=== PATIENT | male | born 1960 | race African-American/Black ===

== ENCOUNTER 2019-11-06 07:54 | Outpatient (CLI) | payer MEDICARE ==
--- NOTE | 2019-11-06 08:52 | RAD ---
Exam:2 views left knee HISTORY: Pain COMPARISON: 04/02/2017 FINDINGS: Stable moderate tricompartmental degenerative change. No fracture or malalignment. No joint effusion. IMPRESSION: Stable tricompartmental degenerative change
--- NOTE | 2019-11-06 11:07 | RAD ---
RIGHT KNEE 2 VIEWS: Date: 11/06/2019 HISTORY: Right knee pain. FINDINGS: There is moderate medial compartment joint space narrowing. There are small patellofemoral spurs. Vas cular calcifications are seen. Ossification along the distal patellar tendon is noted. IMPRESSION: Moderate arthritic changes of the knee, mainly related to medial compartment joint space narrowing. POS: [facility]
--- NOTE | 2019-11-06 11:48 | MRI ---
LUMBAR SPINE MRI WITHOUT IV CONTRAST: Date: 11/06/2019 HISTORY: Radiculopathy of lumbar region. Low back pain radiating to both legs. COMPARISON: 10/13/2016. FINDINGS: Generalized disc desiccation changes, and ligament and facet hypertrophic changes, with fluid within the facet joints, particularly at L2-L3 and L3-L4. Conus medullaris region appears unremarkable. Ther e is minimal fatty infiltration of the phylum terminale. Transitional changes at the lumbosacral leve l. T12-L1: No significant stenosis. L1-L2: No significant stenosis. L2-L3: More marked ligament and facet hypertrophic changes with moderate bilateral facet fluid. The previously noted right-sided synovial cyst at this level is no longer present. Mild bilateral recess stenosis and foraminal stenosis. L3-L4: Facet arthrosis with fluid within the facet joints, with mild lateral recess and foraminal st enosis. L4-L5: Mild disc bulging without significant associated stenosis. L5-S1: Unremarkable. IMPRESSION: Multilevel disc desiccation changes and ligament and facet hypertrophic changes with facet fluid, par ticularly at L2-L3 and L3-L4, with associated stenosis changes at L2-L3. The previously noted right-s ided synovial cyst is no longer evident. Other findings as above. POS: [facility]
== END 2019-11-06 07:55 | disposition home or self-care (01) ==
LOC: BICMRI 07:54
PROVIDERS: ATTEND Anesthesiology Pain Medicine
DX: M51.16 Intervertebral disc disorders with radiculopathy, lumbar region (principal); G89.4 Chronic pain syndrome; M54.5 Low back pain; M62.830 Muscle spasm of back; M25.561 Pain in right knee; M25.562 Pain in left knee; M17.0 Bilateral primary osteoarthritis of knee
CPT/HCPCS: 72148

== ENCOUNTER 2020-02-06 08:01 | Outpatient (CLI) | payer MEDICARE ==
--- NOTE | 2020-02-06 08:39 | MMO ---
Bilateral MAMMO Bilat Diag [facility]. CLINICAL HISTORY: Patient is 59 years old and is seen for diagnostic exam and lump or thickening in the sub-areolar region of the left breast. The patient has the following family history of breast cancer: mother, malignant (generic). The patient has no personal history of cancer. VIEWS: The views performed were: bilateral craniocaudal with tomosynthesis and bilateral mediolateral oblique with tomosynthesis. FILMS COMPARED: The present examination has been compared to a prior imaging study performed at [facility] on 02/06/2020. This study has been interpreted with the assistance of computer-aided detection. MAMMOGRAM FINDINGS: There is fibroglandular tissue in the subaerolar regions bilaterally, consistent with gynecomastia. There are no suspicious masses, suspicious calcifications, or new areas of architectural distortion. IMPRESSION: THERE IS NO MAMMOGRAPHIC EVIDENCE OF MALIGNANCY. THE RESULTS OF THIS EXAM WERE SENT TO THE PATIENT. ACR BI-RADS Category 2 - Benign finding MAMMOGRAPHY NOTE: 1. A negative mammogram report should not delay a biopsy if a dominant of clinically suspicious mass is present. 2. Approximately 10% to 15% of breast cancers are not detected by mammography. 3. Adenosis and dense breasts may obscure an underlying neoplasm. Reported by: RUDY SHEARER MD Electonically Signed: [id number]
== END 2020-02-06 08:02 | disposition home or self-care (01) ==
LOC: BICMAMMO 08:01
PROVIDERS: ATTEND Family Medicine
DX: N63.20 Unspecified lump in the left breast, unspecified quadrant (principal)
CPT/HCPCS: 77066; G0279; 77063; 77067

== ENCOUNTER 2022-07-11 01:44 | Inpatient (IN) | payer OTHER ==
[~2022-07-11 01:44] MED LIST: Iopamidol 370 76% 100 ML VIAL ONE
[2022-07-11 03:58] VITALS: BMI 32.3
[2022-07-11] MEDS ORDERED: Ondansetron PF 4 MG/2 ML Vial IVP PRN ×2 (03:58→16:44)
[2022-07-11] MEDS ORDERED: Acetaminophen 325 MG TAB PO PRN ×2 (03:58→16:44)
[2022-07-11] MEDS ORDERED: Senokot S 8.6-50 MG TAB PO PRN (03:58)
[2022-07-11] MEDS ORDERED: Ondansetron ODT 4 MG TAB PO PRN (03:58)
[2022-07-11 05:45] LABS: ALT (SGPT) 31 U/L (8-55); AST (SGOT) 77 U/L (5-34); Albumin 3.7 g/dL (3.4-4.8); Alkaline Phosphatase 100 U/L (40-110); Anion Gap 14 mmol/L (10-20); BUN (Urea Nitrogen) 17 mg/dL (8.4-25.7); Bilirubin, Total 0.6 mg/dL (0.2-1.2); Calc. Creatinine Clearance 74 mL/min (70-130); Calcium 8.9 mg/dL (7.8-10.44); Carbon Dioxide 27 mmol/L (23-31); Chloride 99 mmol/L (98-107); Estimated GFR 54; Globulin 3.6 g/dL (2.4-3.5); Glucose 185 mg/dL (80-115); Protein, Total 7.3 g/dL (5.8-8.1); Sodium 136 mmol/L (136-145)
[2022-07-11 06:02] LABS: Troponin I 3.449 ng/mL (< 0.028)
[2022-07-11] MEDS: Nitroglycerin 0.4 MG TAB (25 Tab Bottle) ONE ×2 (07:02→07:19)
[2022-07-11] MEDS ORDERED: Nitroglycerin 50 MG/250 ML BOT 250 ML IVPB SCH (07:30)
[2022-07-11] MEDS ORDERED: Sodium Chloride 0.9% 1,000 ML IV SCH (07:30)
[2022-07-11] MEDS ORDERED: Aspirin Chewable 81 MG TAB PO SCH (09:00)
[2022-07-11] MEDS ORDERED: Losartan 25 MG TAB PO SCH (09:00)
[2022-07-11] MEDS ORDERED: Montelukast Sodium 10 mg Tablet PO SCH (09:00)
[2022-07-11] MEDS ORDERED: Atorvastatin Calcium 40 MG TAB PO SCH (09:00)
[2022-07-11] MEDS ORDERED: Chlorthalidone 25 MG TAB PO SCH (09:00)
[2022-07-11] MEDS ORDERED: Allopurinol 100 MG TAB PO SCH (09:00)
[2022-07-11] MEDS ORDERED: Atenolol 50 MG TAB PO SCH (09:00)
[2022-07-11] MEDS ORDERED: Famotidine 20 MG TAB PO SCH (09:00)
[2022-07-11 10:11] LABS: Troponin I 14.474 ng/mL (< 0.028)
[2022-07-11] MEDS ORDERED: Heparin 10,000 UNITS/ 10 ML VIAL ONE (11:02)
[2022-07-11] MEDS ORDERED: Lidocaine 1% (PF) 30 ML VIAL ONE (11:02)
[2022-07-11] MEDS ORDERED: Nitroglycerin 100MG/250ML BOT 250 ML ONE ×2 (11:03→11:17)
[2022-07-11] MEDS ORDERED: Atropine Sulfate 1 mg/10 ml Syringe ONE (11:03)
[2022-07-11] MEDS ORDERED: Adenosine 6 MG/2 ML VIAL ONE ×2 (11:03→11:47)
[2022-07-11] MEDS ORDERED: Verapamil 5 MG/2 ML VIAL ONE (11:17)
[2022-07-11] MEDS ORDERED: Midazolam HCl 2 mg/2 ml Vial ONE (11:47)
[2022-07-11] MEDS ORDERED: FENTANYL 50 MCG/ML 1 ML VIAL ONE (11:47)
[2022-07-11] MEDS ORDERED: Morphine 4 MG/ML VIAL ONE ×2 (12:02→16:40)
[2022-07-11] MEDS ORDERED: Fentanyl 250 MCG/5 ML VIAL ONE (12:07)
[2022-07-11] MEDS ORDERED: Nitroglycerin 50 MG/250 ML BOT 250 ML ONE ×2 (12:08→16:41)
[2022-07-11] MEDS ORDERED: Ketamine 50 MG/ML (10ML VIAL) ONE (12:08)
[2022-07-11] MEDS ORDERED: Midazolam HCl 5 mg/5 ml Vial ONE (12:08)
[2022-07-11] MEDS ORDERED: Phenylephrine 10 MG/ML VIAL ONE (12:08)
[2022-07-11] MEDS ORDERED: Norepinephrine 4 MG/4 ML VIAL ONE (12:08)
[2022-07-11] MEDS ORDERED: Papaverine 60 MG/2 ML VIAL ONE (12:44)
[2022-07-11] MEDS ORDERED: Lidocaine 2% PF 100 mg/5 ml Syringe ONE (12:44)
[2022-07-11] MEDS ORDERED: Mannitol 12.5 GM/50 ML ONE (12:44)
[2022-07-11] MEDS ORDERED: Protamine Sulfate 250 MG/25 ML VIAL ONE (12:44)
[2022-07-11] MEDS ORDERED: Vancomycin 1 GM VIAL ONE (12:44)
[2022-07-11] MEDS ORDERED: Rocuronium Bromide 10 MG/ML (10ML VIAL) ONE (12:44)
[2022-07-11] MEDS ORDERED: Lidocaine 1% PF 5 ML VIAL ONE (12:44)
[2022-07-11] MEDS ORDERED: Aminocaproic Acid 5 GM/20 ML VIAL ONE (12:44)
[2022-07-11] MEDS ORDERED: Thrombin 5000 UNITS/5 ML VIAL ONE (12:44)
[2022-07-11] MEDS ORDERED: PHENYLEPHRINE-NS 100 MCG/ML 10 ML SYRINGE ONE ×2 (12:44→14:48)
[2022-07-11] MEDS ORDERED: Cardioplegic Soln 1,000 ML BAG ONE (12:44)
[2022-07-11] MEDS ORDERED: Heparin 5,000 UNITS/ML VIAL ONE (12:44)
[2022-07-11] MEDS ORDERED: Vecuronium 10 MG VIAL ONE (12:44)
[2022-07-11] MEDS ORDERED: Heparin 30,000 units/30 ml VIAL ONE (12:44)
[2022-07-11] MEDS ORDERED: Potassium Chloride 60 MEQ/30 ML VIAL ONE (12:44)
[2022-07-11] MEDS ORDERED: Magnesium 5 GM/10 ML VIAL ONE (12:44)
[2022-07-11] MEDS ORDERED: Sodium Bicarb 50 MEQ/50 ML VIAL ONE (12:44)
[2022-07-11] MEDS ORDERED: Calcium Chloride 1 GM/10 ML Abboject SYRINGE ONE (12:44)
[2022-07-11] MEDS ORDERED: Albumin 5% 500 ML ONE (14:15)
[2022-07-11] MEDS: Lactated Ringer's 1,000 ML IV SCH (16:30)
[2022-07-11] MEDS ORDERED: niCARdipine 25 MG in Sodium Chloride 0.9% 250 ML 250 ML IVPB PRN (16:44)
[2022-07-11] MEDS ORDERED: Bisacodyl 5 MG TAB PO PRN (16:44)
[2022-07-11] MEDS ORDERED: Fentanyl 100 MCG/2 ML VIAL SLOW IVP PRN ×2 (16:44)
[2022-07-11] MEDS ORDERED: hydrALAZINE 20 MG/ML VIAL SLOW IVP PRN (16:44)
[2022-07-11] MEDS ORDERED: Guaifenesin DM 100-10/5 ML UDCUP PO PRN (16:44)
[2022-07-11] MEDS ORDERED: Bisacodyl 10 MG SUPP PR PRN (16:44)
[2022-07-11] MEDS ORDERED: Post-Op Insulin Drip Protocol IVPB ONE (16:44)
[2022-07-11] MEDS ORDERED: DOPamine 400 MG/D5W 250 ML 250 ML IVPB PRN (16:44)
[2022-07-11] MEDS ORDERED: HYDROcodone/Acetaminophen 5/325 mg Tablet PO PRN ×2 (16:44)
[2022-07-11] MEDS ORDERED: Ipratropium/Albuterol 3 ML NEB NEB PRN (16:44)
[2022-07-11] MEDS ORDERED: Hetastarch 6% 500 ML 500 ML IVPB PRN (16:44)
[2022-07-11] MEDS ORDERED: Nitroglycerin 50 MG/250 ML BOT 250 ML IVPB PRN (16:44)
[2022-07-11 16:49] LABS: Actual Bicarbonate (HCO3a) 22.2 mEq/L (22-28); Base Excess (BEa) -2.9 mEq/L (-2.0 to +3.0); CO2 Tension 39.9 mmHg (35.0-45.0); Calcium, Ionized (arterial) 1.17 mmol/L (1.12-1.30); Carboxyhemoglobin (COHb) 0.4 gm% (0.0-3.0); Hemoglobin (Hb) 13.1 g/dL (14.0-18.0); O2 Tension (PaO2), arterial 88.2 mmHg (> 80.0); Potassium - ABG Lab 3.07 mmol/L (3.70-5.30); pH, Arterial 7.36 (7.35-7.45)
[2022-07-11 16:50] LABS: ALV-art Gradient 574.925 mmHg (0-20); Puncture Site Arterial Line
[2022-07-11 16:56] LABS: #Eosinphils 0.2 thou/uL (0.0-0.7); #Lymphocytes 2.1 thou/uL (1.20-3.40); #Monocytes 0.9 thou/uL (0.11-0.59); #Neutrophils 8.2 thou/uL (1.40-6.50); %Basophils 0.3 % (0.0-1.0); %Eosinophils 1.6 % (0.0-10.0); %Lymphocytes 18.4 % (21.0-51.0); %Monocytes 8.1 % (0.0-10.0); %Neutrophils 71.6 % (42.0-75.0); Hemoglobin 12.5 g/dL (14.0-18.0); Mean Corpuscular HGB CONC 36.2 g/dL (32.0-36.0); Mean Corpuscular Hemoglobin 32.4 pg (27.0-31.0); Mean Corpuscular Volume 89.5 fl (78.0-98.0); Mean Platelet Volume 7.3 fL (7.4-10.4); Platelet Count 118 10x3/uL (130-400); RBC Distribution Width 11.1 % (11.5-14.5); Red Blood Cell (RBC) Count 3.86 mill/uL (4.70-6.10); White Blood Cell (WBC) Count 11.5 10x3/uL (4.8-10.8)
[2022-07-11] MEDS ORDERED: Insulin Regular 300 UNITS/3 ML VIAL SC PRN (17:00)
[2022-07-11] MEDS ORDERED: Dextrose 50% Abboject 50 ML SYRINGE SLOW IVP PRN (17:00)
[2022-07-11] MEDS ORDERED: Dextrose 5% in Water 1,000 ML IV PRN (17:00)
[2022-07-11] MEDS ORDERED: HUMULIN R 100 UNITS in Sodium Chloride 0.9% 100 ML IVPB SCH (17:00)
[2022-07-11 17:06] LABS: INR-International Normal Ratio 1.4; PTT 32.3 sec (22.9-36.1); Prothrombin Time 17.5 sec (12.0-14.7)
[2022-07-11 17:12] LABS: Anion Gap 14 mmol/L (10-20); BUN (Urea Nitrogen) 14 mg/dL (8.4-25.7); Calc. Creatinine Clearance 92 mL/min (70-130); Calcium 8.2 mg/dL (7.8-10.44); Carbon Dioxide 18 mmol/L (23-31); Chloride 108 mmol/L (98-107); Estimated GFR 70; Glucose 129 mg/dL (80-115); Potassium 3.1 mmol/L (3.5-5.1); Sodium 137 mmol/L (136-145)
[2022-07-11] MEDS: Morphine 2 MG/ML VIAL SLOW IVP PRN ×2 (17:58→19:01)
[2022-07-11 19:33] LABS: Actual Bicarbonate (HCO3a) 17.8 mEq/L (22-28); Calcium, Ionized (arterial) 1.17 mmol/L (1.12-1.30); Carboxyhemoglobin (COHb) 0.7 gm% (0.0-3.0); Hemoglobin (Hb) 14.7 g/dL (14.0-18.0); Potassium - ABG Lab 3.44 mmol/L (3.70-5.30); pH, Arterial 7.25 (7.35-7.45)
[2022-07-11 19:34] LABS: O2 Tension (PaO2), arterial 59.3 mmHg (> 80.0); Puncture Site ALINE
[2022-07-11] MEDS ORDERED: Sodium Bicarb 50 MEQ/50 ML VIAL IVP SCH (19:45)
[2022-07-11] MEDS ORDERED: DISCONTINUE PREVIOUS NARCOTIC PAIN MEDICATIONS AND BENZODIAZEPINES FS SCH ×2 (19:45)
[2022-07-11] MEDS ORDERED: Propofol 1,000 MG/100 ML VIAL IV PRN ×2 (19:45)
[2022-07-11] MEDS ORDERED: Fentanyl CADD 100 ML IV SCH ×2 (19:45)
[2022-07-11] MEDS ORDERED: Ventilator Sedation Protocol 1 EACH FS SCH (19:45)
[2022-07-11] MEDS ORDERED: Fentanyl BOLUS 250 ML IVPB PRN ×2 (19:45)
[2022-07-11] MEDS ORDERED: Lorazepam 2 MG/ML VIAL SLOW IVP PRN ×2 (19:45)
[2022-07-11] MEDS ORDERED: Propofol BOLUS 1,000 MG/100 ML VIAL IV PRN ×2 (19:45)
[2022-07-11] MEDS ORDERED: Morphine 2 MG/ML VIAL SLOW IVP PRN ×2 (19:45)
[2022-07-11] MEDS ORDERED: Fentanyl CADD 100 ML ONE (19:58)
[2022-07-11] MEDS: Famotidine/PF 20 mg/2ml Vial SLOW IVP SCH (20:02)
[2022-07-11] MEDS: NOREPINEPHRINE 8 MG/250 ML-D5W 250 ML IVPB PRN (20:34)
[2022-07-11] MEDS ORDERED: Insulin Glargine 30 UNITS/0.3 ML VIAL SC SCH (21:00)
[2022-07-11] MEDS: CEFAZOLIN 2 GM in Sodium Chloride 0.9% 100 ML IVPB SCH (22:24)
[2022-07-11 22:27] LABS: Hemoglobin 12.4 g/dL (14.0-18.0)
[2022-07-11 22:43] LABS: Potassium 3.9 mmol/L (3.5-5.1)
[2022-07-11] MEDS: Simvastatin 40 MG TAB PO SCH (22:43)
[2022-07-11] MEDS: Potassium Chloride 20 MEQ/100 ML PREMIX BAG IVPB PRN (23:27)
[2022-07-12 04:30] LABS: #Lymphocytes 1.1 thou/uL (1.20-3.40); #Monocytes 1.7 thou/uL (0.11-0.59); #Neutrophils 10.7 thou/uL (1.40-6.50); %Basophils 0.1 % (0.0-1.0); %Eosinophils 0.1 % (0.0-10.0); %Lymphocytes 7.8 % (21.0-51.0); %Monocytes 12.4 % (0.0-10.0); %Neutrophils 79.6 % (42.0-75.0); Hemoglobin 12.2 g/dL (14.0-18.0); Mean Corpuscular HGB CONC 35.3 g/dL (32.0-36.0); Mean Corpuscular Volume 90.6 fl (78.0-98.0); Mean Platelet Volume 7.7 fL (7.4-10.4); Platelet Count 165 10x3/uL (130-400); RBC Distribution Width 11.3 % (11.5-14.5); Red Blood Cell (RBC) Count 3.82 mill/uL (4.70-6.10); White Blood Cell (WBC) Count 13.5 10x3/uL (4.8-10.8)
[2022-07-12 04:54] LABS: Anion Gap 12 mmol/L (10-20); BUN (Urea Nitrogen) 17 mg/dL (8.4-25.7); Calc. Creatinine Clearance 66 mL/min (70-130); Calcium 8.6 mg/dL (7.8-10.44); Carbon Dioxide 24 mmol/L (23-31); Chloride 109 mmol/L (98-107); Estimated GFR 48; Glucose 129 mg/dL (80-115); Sodium 141 mmol/L (136-145)
[2022-07-12] MEDS: Lactated Ringer's 1,000 ML IV SCH (05:36)
[2022-07-12] MEDS: CEFAZOLIN 2 GM in Sodium Chloride 0.9% 100 ML IVPB SCH ×2 (05:36→14:46)
[2022-07-12] MEDS: NOREPINEPHRINE 8 MG/250 ML-D5W 250 ML IVPB PRN (05:42)
[2022-07-12] MEDS: Potassium Chloride 20 MEQ/100 ML PREMIX BAG IVPB PRN (06:39)
[2022-07-12 08:11] LABS: Actual Bicarbonate (HCO3a) 22.8 mEq/L (22-28); Base Excess (BEa) -5.3 mEq/L (-2.0 to +3.0); CO2 Tension 55.2 mmHg (35.0-45.0); Calcium, Ionized (arterial) 1.17 mmol/L (1.12-1.30); Carboxyhemoglobin (COHb) 0.4 gm% (0.0-3.0); Hemoglobin (Hb) 13.5 g/dL (14.0-18.0); O2 Tension (PaO2), arterial 76.3 mmHg (> 80.0); pH, Arterial 7.23 (7.35-7.45)
[2022-07-12] MEDS: Gabapentin 300 MG CAP PO SCH ×2 (08:33→10:00)
[2022-07-12] MEDS: Famotidine/PF 20 mg/2ml Vial SLOW IVP SCH ×2 (08:33→20:17)
[2022-07-12] MEDS ORDERED: Magnesium 2 GM/50 ML(in water) 2 GM in Premix Bag 1 BAG IVPB SCH (09:00)
[2022-07-12] MEDS: Polyethylene Glycol 3350 17 GM Packet PO SCH (10:00)
[2022-07-12] MEDS: Aspirin 325 MG TAB PO SCH ×2 (10:00→12:37)
[2022-07-12 10:24] LABS: Puncture Site Arterial Line
[2022-07-12] MEDS ORDERED: Promethazine HCl 6.25 MG in Sodium Chloride 0.9% 50 ML IVPB SCH (14:15)
[2022-07-12] MEDS ORDERED: Promethazine HCl 6.25 MG in Sodium Chloride 0.9% 50 ML IVPB PRN (16:05)
[2022-07-12] MEDS ORDERED: Lactated Ringer's 1,000 ML IV SCH (16:15)
[2022-07-12] MEDS ORDERED: Insulin Glargine 30 UNITS/0.3 ML VIAL SC PRN (16:48)
[2022-07-12] MEDS: Fentanyl 100 MCG/2 ML VIAL SLOW IVP PRN ×2 (17:13→20:05)
[2022-07-12] MEDS: Sodium Chloride 0.9% 1,000 ML IV SCH (17:28)
[2022-07-12] MEDS ORDERED: Lidocaine 4% Patch TD SCH (21:00)
[2022-07-12] MEDS ORDERED: traMADol HCl 50 MG TAB PO PRN (21:44)
[2022-07-12] MEDS ORDERED: HYDROcodone/Acetaminophen 5/325 mg Tablet PO PRN (22:41)
[2022-07-12] MEDS: Mag-Al 1200 mg/1200 mg/30 ML UDCUP PO PRN (22:57)
[2022-07-12] MEDS ORDERED: Atorvastatin Calcium 20 MG TAB PO SCH (23:00)
[2022-07-12] MEDS: Simvastatin 40 MG TAB PO SCH (23:34)
[2022-07-13] MEDS: Fentanyl 100 MCG/2 ML VIAL SLOW IVP PRN (01:43)
[2022-07-13] MEDS: Mag-Al 1200 mg/1200 mg/30 ML UDCUP PO PRN (02:22)
[2022-07-13] MEDS: HYDROcodone/Acetaminophen 5/325 mg Tablet PO PRN ×2 (03:06→10:01)
[2022-07-13] MEDS: Sodium Chloride 0.9% 1,000 ML IV SCH (03:07)
[2022-07-13 04:27] LABS: Hemoglobin 11.2 g/dL (14.0-18.0); Mean Corpuscular HGB CONC 33.9 g/dL (32.0-36.0); Mean Corpuscular Hemoglobin 31.1 pg (27.0-31.0); Mean Corpuscular Volume 91.6 fl (78.0-98.0); Mean Platelet Volume 7.8 fL (7.4-10.4); Platelet Count 122 10x3/uL (130-400); RBC Distribution Width 11.3 % (11.5-14.5); Red Blood Cell (RBC) Count 3.62 mill/uL (4.70-6.10); White Blood Cell (WBC) Count 14.5 10x3/uL (4.8-10.8)
[2022-07-13 04:34] LABS: Hemoglobin A1c 6.4 % (4.0-6.0)
[2022-07-13 04:48] LABS: Anion Gap 16 mmol/L (10-20); BUN (Urea Nitrogen) 24 mg/dL (8.4-25.7); Calc. Creatinine Clearance 71 mL/min (70-130); Calcium 8.5 mg/dL (7.8-10.44); Carbon Dioxide 21 mmol/L (23-31); Chloride 104 mmol/L (98-107); Cholesterol 82 mg/dl (< 200 Desired); Estimated GFR 50; Glucose 169 mg/dL (80-115); HDL Cholesterol 27 mg/dL (>60 Neg Risk); LDL Cholesterol, Calculated 36 mg/dL; Sodium 137 mmol/L (136-145); Triglycerides 97 mg/dL (Less than 150)
[2022-07-13] MEDS ORDERED: Temazepam 15 MG CAP PO PRN (07:49)
[2022-07-13] MEDS ORDERED: Nitroglycerin 0.4 MG TAB (25 Tab Bottle) SL PRN (08:33)
[2022-07-13] MEDS ORDERED: Transdermal Patch Removal TOP SCH (09:00)
[2022-07-13] MEDS ORDERED: Potassium Chloride 10 MEQ TAB PO SCH (09:15)
[2022-07-13] MEDS ORDERED: Insulin Regular 300 UNITS/3 ML VIAL SC PRN (09:45)
[2022-07-13] MEDS: Metoprolol Tartrate 25 MG TAB PO SCH ×2 (09:51→13:50)
[2022-07-13] MEDS: Aspirin 325 MG TAB PO SCH (09:53)
[2022-07-13] MEDS: Furosemide 40 MG TAB PO SCH (09:53)
[2022-07-13] MEDS: Gabapentin 300 MG CAP PO SCH (09:53)
[2022-07-13] MEDS: Polyethylene Glycol 3350 17 GM Packet PO SCH (09:55)
[2022-07-13] MEDS ORDERED: Docusate 100 MG CAP PO SCH (12:45)
[2022-07-13 15:01] LABS: Actual Bicarbonate (HCO3a) 22.9 mEq/L (22-28); Analyzer IN Cardio OR; Base Excess (BEa) -1.4 mEq/L (-2.0 to +3.0); CO2 Tension 36.5 mmHg (35.0-45.0); Calcium, Ionized (arterial) 0.97 mmol/L (1.12-1.30); Carboxyhemoglobin (COHb) 0.3 gm% (0.0-3.0); Hemoglobin (Hb) 8.8 g/dL (14.0-18.0); O2 Tension (PaO2), arterial 302.2 mmHg (> 80.0); pH, Arterial 7.42 (7.35-7.45)
[2022-07-13 15:01] LABS: Actual Bicarbonate (HCO3a) 19.6 mEq/L (22-28); Analyzer IN Cardio OR; Base Excess (BEa) -4.3 mEq/L (-2.0 to +3.0); CO2 Tension 31.4 mmHg (35.0-45.0); Calcium, Ionized (arterial) 1.13 mmol/L (1.12-1.30); Carboxyhemoglobin (COHb) 0.3 gm% (0.0-3.0); O2 Tension (PaO2), arterial 95.2 mmHg (> 80.0); Potassium - ABG Lab 3.27 mmol/L (3.70-5.30); pH, Arterial 7.41 (7.35-7.45)
[2022-07-13 15:02] LABS: Actual Bicarbonate (HCO3a) 23.8 mEq/L (22-28); Analyzer IN Cardio OR; Base Excess (BEa) 0.3 mEq/L (-2.0 to +3.0); CO2 Tension 33.4 mmHg (35.0-45.0); Calcium, Ionized (arterial) 0.94 mmol/L (1.12-1.30); Carboxyhemoglobin (COHb) 0.3 gm% (0.0-3.0); Hemoglobin (Hb) 8.9 g/dL (14.0-18.0); O2 Tension (PaO2), arterial 390.1 mmHg (> 80.0); Potassium - ABG Lab 3.81 mmol/L (3.70-5.30); pH, Arterial 7.47 (7.35-7.45)
[2022-07-13 15:02] LABS: Actual Bicarbonate (HCO3a) 24.1 mEq/L (22-28); Analyzer IN Cardio OR; Base Excess (BEa) 0.4 mEq/L (-2.0 to +3.0); CO2 Tension 35.9 mmHg (35.0-45.0); Calcium, Ionized (arterial) 1.07 mmol/L (1.12-1.30); Carboxyhemoglobin (COHb) 0.7 gm% (0.0-3.0); Hemoglobin (Hb) 12.6 g/dL (14.0-18.0); O2 Tension (PaO2), arterial 367.3 mmHg (> 80.0); Potassium - ABG Lab 3.11 mmol/L (3.70-5.30); pH, Arterial 7.45 (7.35-7.45)
[2022-07-13 15:02] LABS: Analyzer IN Cardio OR; Base Excess (BEa) -3.3 mEq/L (-2.0 to +3.0); CO2 Tension 30.2 mmHg (35.0-45.0); Calcium, Ionized (arterial) 1.05 mmol/L (1.12-1.30); Carboxyhemoglobin (COHb) 0.1 gm% (0.0-3.0); Hemoglobin (Hb) 11.2 g/dL (14.0-18.0); O2 Tension (PaO2), arterial 366.8 mmHg (> 80.0); Potassium - ABG Lab 2.88 mmol/L (3.70-5.30); pH, Arterial 7.44 (7.35-7.45)
[2022-07-13 15:03] LABS: Puncture Site Arterial Line
[2022-07-13 15:03] LABS: Puncture Site Arterial Line
[2022-07-13 15:03] LABS: Puncture Site Arterial Line
[2022-07-13 15:04] LABS: Puncture Site Arterial Line
[2022-07-13 15:04] LABS: Puncture Site Arterial Line
[2022-07-13] MEDS: Atorvastatin Calcium 20 MG TAB PO SCH (20:51)
[2022-07-13] MEDS: Insulin Glargine 30 UNITS/0.3 ML VIAL SC SCH (20:51)
[2022-07-13] MEDS ORDERED: Metoprolol Tartrate 25 MG TAB PO SCH (21:00)
[2022-07-14 05:23] LABS: #Eosinphils 0.1 thou/uL (0.0-0.7); #Lymphocytes 1.3 thou/uL (1.20-3.40); #Monocytes 1.7 thou/uL (0.11-0.59); #Neutrophils 10.1 thou/uL (1.40-6.50); %Basophils 0.1 % (0.0-1.0); %Eosinophils 0.6 % (0.0-10.0); %Monocytes 13.1 % (0.0-10.0); %Neutrophils 76.3 % (42.0-75.0); Hemoglobin 10.8 g/dL (14.0-18.0); Mean Corpuscular HGB CONC 34.8 g/dL (32.0-36.0); Mean Corpuscular Hemoglobin 32.1 pg (27.0-31.0); Mean Corpuscular Volume 92.2 fl (78.0-98.0); Platelet Count 127 10x3/uL (130-400); RBC Distribution Width 11.2 % (11.5-14.5); Red Blood Cell (RBC) Count 3.37 mill/uL (4.70-6.10); White Blood Cell (WBC) Count 13.2 10x3/uL (4.8-10.8)
[2022-07-14 05:47] LABS: Anion Gap 12 mmol/L (10-20); BUN (Urea Nitrogen) 25 mg/dL (8.4-25.7); Calc. Creatinine Clearance 78 mL/min (70-130); Calcium 9.2 mg/dL (7.8-10.44); Carbon Dioxide 26 mmol/L (23-31); Chloride 104 mmol/L (98-107); Estimated GFR 56; Glucose 130 mg/dL (80-115); Potassium 4.4 mmol/L (3.5-5.1); Sodium 138 mmol/L (136-145)
[2022-07-14] MEDS ORDERED: Metoprolol Tartrate 25 MG TAB PO SCH (06:47)
[2022-07-14] MEDS: Aspirin 325 MG TAB PO SCH (08:25)
[2022-07-14] MEDS: Potassium Chloride 10 MEQ TAB PO SCH (08:25)
[2022-07-14] MEDS: Metoprolol Tartrate 50 MG TAB PO SCH ×2 (08:27→22:30)
[2022-07-14] MEDS: Furosemide 40 MG TAB PO SCH (08:27)
[2022-07-14] MEDS: Polyethylene Glycol 3350 17 GM Packet PO SCH (08:27)
[2022-07-14] MEDS: Gabapentin 300 MG CAP PO SCH (08:27)
[2022-07-14] MEDS ORDERED: Mometasone 200 MCG/Formoterol 5 MCG 120 PUFF INHALER INH PRN (08:38)
[2022-07-14] MEDS ORDERED: Milk Of Magnesia 30 ML UDCUP PO SCH (08:45)
[2022-07-14] MEDS ORDERED: Docusate 100 MG CAP PO SCH (09:00)
[2022-07-14] MEDS ORDERED: ALBUTEROL SULFATE IH SCH (09:00)
[2022-07-14] MEDS: Lidocaine 4% Patch TD SCH (09:39)
[2022-07-14] MEDS: Senokot S 8.6-50 MG TAB PO SCH ×2 (09:40→22:30)
[2022-07-14] MEDS ORDERED: Transdermal Patch Removal TOP SCH (21:00)
[2022-07-14] MEDS: Insulin Glargine 30 UNITS/0.3 ML VIAL SC SCH (22:30)
[2022-07-14] MEDS: Atorvastatin Calcium 20 MG TAB PO SCH (22:32)
[2022-07-15 05:42] LABS: Anion Gap 14 mmol/L (10-20); BUN (Urea Nitrogen) 26 mg/dL (8.4-25.7); Calc. Creatinine Clearance 83 mL/min (70-130); Calcium 9.5 mg/dL (7.8-10.44); Carbon Dioxide 23 mmol/L (23-31); Chloride 103 mmol/L (98-107); Estimated GFR 61; Glucose 115 mg/dL (80-115); Magnesium 1.8 mg/dL (1.6-2.6); Potassium 3.9 mmol/L (3.5-5.1); Sodium 136 mmol/L (136-145)
[2022-07-15] MEDS: Polyethylene Glycol 3350 17 GM Packet PO SCH (09:00)
[2022-07-15] MEDS: Gabapentin 300 MG CAP PO SCH (09:38)
[2022-07-15] MEDS: Aspirin 325 MG TAB PO SCH (09:38)
[2022-07-15] MEDS: Furosemide 40 MG TAB PO SCH (09:39)
[2022-07-15] MEDS: Senokot S 8.6-50 MG TAB PO SCH (09:39)
[2022-07-15] MEDS: Potassium Chloride 10 MEQ TAB PO SCH (09:39)
[2022-07-15] MEDS: Metoprolol Tartrate 50 MG TAB PO SCH (09:39)
[2022-07-15] MEDS: Lidocaine 4% Patch TD SCH ×2 (09:39→11:35)
[2022-07-15] MEDS: Benzonatate 100 MG CAP PO SCH ×2 (09:41→15:00)
[2022-07-15] MEDS: HYDROcodone/Acetaminophen 5/325 mg Tablet PO PRN (09:41)
[2022-07-15 12:29] VITALS: TEMP 97.8
[2022-07-15 12:50] VITALS: BP 126/85
== END 2022-07-15 16:00 | disposition home or self-care (01) | DRG 233 ==
LOC: 2SW 01:44 → OBSVTOIN 07:18 → CCU 08:12 → 2NO 07-13 14:38
PROVIDERS: ADMIT Student in an Organized Health Care Education/Training Program; ATTEND Family Medicine
PROC: B2111ZZ Fluoroscopy of Multiple Coronary Arteries using Low Osmolar Contrast (ICD-10-PCS; 2022-07-11)
PROC: 0212099 Bypass Coronary Artery, Three Arteries from Left Internal Mammary with Autologous Venous Tissue, Open Approach (ICD-10-PCS; principal; 2022-07-12)
PROC: 4A023N7 Measurement of Cardiac Sampling and Pressure, Left Heart, Percutaneous Approach (ICD-10-PCS; 2022-07-12)
PROC: 06BQ4ZZ Excision of Left Saphenous Vein, Percutaneous Endoscopic Approach (ICD-10-PCS; 2022-07-12)
PROC: B2151ZZ Fluoroscopy of Left Heart using Low Osmolar Contrast (ICD-10-PCS; 2022-07-12)
PROC: 3E033XZ Introduction of Vasopressor into Peripheral Vein, Percutaneous Approach (ICD-10-PCS; 2022-07-12)
PROC: 5A1221Z Performance of Cardiac Output, Continuous (ICD-10-PCS; 2022-07-12)
PROC: 02L70ZK Occlusion of Left Atrial Appendage, Open Approach (ICD-10-PCS; 2022-07-12)
DX: I21.4 Non-ST elevation (NSTEMI) myocardial infarction (principal); J96.01 Acute respiratory failure with hypoxia; R57.8 Other shock; N17.9 Acute kidney failure, unspecified; I13.0 Hypertensive heart and chronic kidney disease with heart failure and stage 1 through stage 4 chronic kidney disease, or unspecified chronic kidney disease; I50.22 Chronic systolic (congestive) heart failure; E78.5 Hyperlipidemia, unspecified; M10.9 Gout, unspecified; F17.210 Nicotine dependence, cigarettes, uncomplicated; E11.22 Type 2 diabetes mellitus with diabetic chronic kidney disease; N18.30 Chronic kidney disease, stage 3 unspecified; Z20.822 Contact with and (suspected) exposure to COVID-19; K21.9 Gastro-esophageal reflux disease without esophagitis; G89.4 Chronic pain syndrome; J44.9 Chronic obstructive pulmonary disease, unspecified; I25.110 Atherosclerotic heart disease of native coronary artery with unstable angina pectoris; D63.1 Anemia in chronic kidney disease; E66.9 Obesity, unspecified; K59.00 Constipation, unspecified; Z88.2 Allergy status to sulfonamides; Z79.899 Other long term (current) drug therapy; Z68.33 Body mass index [BMI] 33.0-33.9, adult
CPT/HCPCS: 36415; 36416; 36430; 71045; 74176; 80048; 80061; 82805; 83036; 83735; 85025; 85027; 85610; 85730; 86850; 86870; 86900; 86901; 86905; 86922; 93005; 93010; 93306; 93458; 93459; 93798; 94002; 94003; 94150; 94640; 99152; C1713; C1751; C1769; C1776; C1894; G0378; J0153; J0461; J1644; J1650; J1815; J2001; J2150; J2250; J2270; J2272; J2370; J2440; J2550; J2704; J2720; J3010; J3370; J3475; J3480; J3490; J7050; J7120; J7611; P9045; Q9967; S0017; S0028; U0003; U0005

== ENCOUNTER 2022-08-18 13:02 | Emergency (ER) | payer OTHER ==
[2022-08-18 14:42] LABS: #Eosinphils 0.5 thou/uL (0.0-0.7); #Monocytes 0.8 thou/uL (0.11-0.59); #Neutrophils 3.2 thou/uL (1.40-6.50); %Basophils 0.5 % (0.0-1.0); %Eosinophils 7.2 % (0.0-10.0); %Lymphocytes 30.3 % (21.0-51.0); %Monocytes 12.1 % (0.0-10.0); Hemoglobin 13.3 g/dL (14.0-18.0); Mean Corpuscular HGB CONC 33.1 g/dL (32.0-36.0); Mean Corpuscular Volume 90.6 fl (78.0-98.0); Mean Platelet Volume 7.3 fL (7.4-10.4); Platelet Count 213 10x3/uL (130-400); RBC Distribution Width 12.5 % (11.5-14.5); Red Blood Cell (RBC) Count 4.44 mill/uL (4.70-6.10); White Blood Cell (WBC) Count 6.4 10x3/uL (4.8-10.8)
[2022-08-18 15:07] LABS: ALT (SGPT) 24 U/L (8-55); AST (SGOT) 31 U/L (5-34); Albumin 3.9 g/dL (3.4-4.8); Alkaline Phosphatase 125 U/L (40-110); Anion Gap 13 mmol/L (10-20); BUN (Urea Nitrogen) 15 mg/dL (8.4-25.7); Bilirubin, Total 0.5 mg/dL (0.2-1.2); Calc. Creatinine Clearance 0 mL/min (70-130); Calcium 9.4 mg/dL (7.8-10.44); Carbon Dioxide 25 mmol/L (23-31); Chloride 106 mmol/L (98-107); Estimated GFR 54; Glucose 105 mg/dL (80-115); Potassium 4.1 mmol/L (3.5-5.1); Protein, Total 7.9 g/dL (5.8-8.1); Sodium 140 mmol/L (136-145)
[2022-08-18 17:04] LABS: Bacteria/HPF None Seen HPF (None Seen); Bilirubin Negative (Negative); Blood, Urine 3+ (Negative); Clarity Turbid (Clear); Glucose, Urine (Dipstick) Normal (Negative); Ketone, Urine Negative (Negative); Leukocyte 250 Leu/uL (Negative); Nitrite Negative (Negative); Protein, Urine (Dipstick) 30 mg/dL (Neg-Trace); RBC/HPF Greater than 50 HPF (0-3); Specific Gravity, Urine 1.018 (1.002-1.036); Squamous Epithelial 0-3 HPF (0-3); Urobilinogen Normal mg/dL (Less than 2); WBC/HPF Greater than 50 HPF (0-3)
== END 2022-08-18 18:05 | disposition home or self-care (01) ==
LOC: ERS 13:02
DX: N39.0 Urinary tract infection, site not specified (principal); I10 Essential (primary) hypertension; K21.9 Gastro-esophageal reflux disease without esophagitis; E11.9 Type 2 diabetes mellitus without complications; J44.9 Chronic obstructive pulmonary disease, unspecified
CPT/HCPCS: 36415; 80053; 81003; 81015; 85025; 87086; 93005

== ENCOUNTER 2022-11-02 14:36 | Observation (INO) | payer OTHER ==
[~2022-11-02 14:36] MED LIST changes: -Iopamidol 370 76% 100 ML VIAL ONE; +Iopamidol-370 76% 500 ML MDV (1 ML CHARGE) ONE
[2022-11-02] MEDS ORDERED: Ketorolac Tromethamine 30 MG/ML VIAL ONE (15:39)
[2022-11-02 16:16] LABS: #Basophils 0.1 thou/uL (0.0-0.2); #Eosinphils 0.4 thou/uL (0.0-0.7); #Monocytes 0.9 thou/uL (0.11-0.59); #Neutrophils 6.6 thou/uL (1.40-6.50); %Basophils 0.5 % (0.0-1.0); %Eosinophils 4.1 % (0.0-10.0); %Lymphocytes 16.2 % (21.0-51.0); %Monocytes 9.8 % (0.0-10.0); %Neutrophils 69.2 % (42.0-75.0); Hemoglobin 15.5 g/dL (14.0-18.0); Mean Corpuscular Hemoglobin 29.1 pg (27.0-31.0); Mean Corpuscular Volume 83.1 fl (78.0-98.0); Mean Platelet Volume 9.3 fL (7.4-10.4); Platelet Count 263 10x3/uL (130-400); RBC Distribution Width 13.5 % (11.5-14.5); Red Blood Cell (RBC) Count 5.33 mill/uL (4.70-6.10); White Blood Cell (WBC) Count 9.5 10x3/uL (4.8-10.8)
[2022-11-02 16:45] LABS: ALT (SGPT) 32 U/L (8-55); AST (SGOT) 35 U/L (5-34); Albumin 4.6 g/dL (3.4-4.8); Alkaline Phosphatase 112 U/L (40-110); Anion Gap 15 mmol/L (10-20); BUN (Urea Nitrogen) 15 mg/dL (8.4-25.7); Bilirubin, Total 0.8 mg/dL (0.2-1.2); Calc. Creatinine Clearance 0 mL/min (70-130); Calcium 10.4 mg/dL (7.8-10.44); Carbon Dioxide 22 mmol/L (23-31); Chloride 108 mmol/L (98-107); Estimated GFR 37; Globulin 4.2 g/dL (2.4-3.5); Glucose 93 mg/dL (80-115); Potassium 3.9 mmol/L (3.5-5.1); Protein, Total 8.8 g/dL (5.8-8.1); Sodium 141 mmol/L (136-145)
[2022-11-02] MEDS ORDERED: Dextrose 5% in Water 1,000 ML IV PRN (19:54)
[2022-11-02] MEDS ORDERED: Morphine 2 MG/ML VIAL SLOW IVP PRN (19:54)
[2022-11-02] MEDS ORDERED: TETANUS, DIPHTHERIA TOX,ADULT (TDVAX) 0.5 ML VIAL IM ONE (19:54)
[2022-11-02] MEDS ORDERED: Ondansetron PF 4 MG/2 ML Vial IVP PRN (19:54)
[2022-11-02] MEDS ORDERED: HumaLOG 300 UNITS/3 ML VIAL SC PRN (19:54)
[2022-11-02] MEDS ORDERED: Glucagon 1 MG/ML KIT IM PRN (19:54)
[2022-11-02] MEDS ORDERED: Dextrose 50% Abboject 50 ML SYRINGE SLOW IVP PRN (19:54)
[2022-11-02] MEDS ORDERED: Acetaminophen 500 MG TAB PO PRN (20:10)
[2022-11-02 22:39] VITALS: BMI 29.0
[2022-11-02] MEDS: HYDROcodone/Acetaminophen 5/325 mg Tablet PO SCH (23:51)
[2022-11-02] MEDS: Sodium Chloride 0.9% 1,000 ML IV SCH (23:53)
[2022-11-03 04:59] LABS: #Basophils 0.1 thou/uL (0.0-0.2); #Eosinphils 0.5 thou/uL (0.0-0.7); #Monocytes 0.7 thou/uL (0.11-0.59); #Neutrophils 2.2 thou/uL (1.40-6.50); %Basophils 1.1 % (0.0-1.0); %Eosinophils 9.3 % (0.0-10.0); %Lymphocytes 35.9 % (21.0-51.0); %Monocytes 13.2 % (0.0-10.0); %Neutrophils 40.3 % (42.0-75.0); Hemoglobin 13.5 g/dL (14.0-18.0); Mean Corpuscular Hemoglobin 29.1 pg (27.0-31.0); Mean Platelet Volume 9.2 fL (7.4-10.4); Platelet Count 197 10x3/uL (130-400); RBC Distribution Width 13.7 % (11.5-14.5); Red Blood Cell (RBC) Count 4.64 mill/uL (4.70-6.10); White Blood Cell (WBC) Count 5.4 10x3/uL (4.8-10.8)
[2022-11-03 05:26] LABS: Mean Corpuscular Volume 85.6 fl (78.0-98.0)
[2022-11-03 05:27] LABS: Magnesium 1.8 mg/dL (1.6-2.6); Phosphorus 4.3 mg/dL (2.3-4.7)
[2022-11-03 05:30] LABS: ALT (SGPT) 28 U/L (8-55); AST (SGOT) 32 U/L (5-34); Albumin 3.7 g/dL (3.4-4.8); Alkaline Phosphatase 87 U/L (40-110); Anion Gap 13 mmol/L (10-20); BUN (Urea Nitrogen) 13 mg/dL (8.4-25.7); Bilirubin, Total 0.7 mg/dL (0.2-1.2); Calc. Creatinine Clearance 77 mL/min (70-130); Carbon Dioxide 21 mmol/L (23-31); Chloride 108 mmol/L (98-107); Estimated GFR 65; Globulin 3.2 g/dL (2.4-3.5); Glucose 78 mg/dL (80-115); Magnesium 1.8 mg/dL (1.6-2.6); Potassium 3.8 mmol/L (3.5-5.1); Protein, Total 6.9 g/dL (5.8-8.1); Sodium 138 mmol/L (136-145)
[2022-11-03] MEDS: HYDROcodone/Acetaminophen 5/325 mg Tablet PO SCH ×2 (05:40→11:57)
[2022-11-03] MEDS: Sodium Chloride 0.9% 1,000 ML IV SCH (05:41)
[2022-11-03] MEDS ORDERED: Cyclobenzaprine 10 MG TAB PO PRN (08:11)
[2022-11-03] MEDS ORDERED: Potassium Chloride 20 MEQ in Premix Bag 1 BAG IVPB SCH (09:00)
[2022-11-03] MEDS ORDERED: Metoprolol Tartrate 50 MG TAB PO SCH (09:00)
[2022-11-03] MEDS ORDERED: Magnesium Sulfate In Water 4 GM in Premix Bag 1 BAG IVPB SCH (09:00)
[2022-11-03] MEDS ORDERED: Pregabalin 50 MG CAP PO SCH (09:00)
[2022-11-03 12:12] VITALS: TEMP 97.5
[2022-11-03 14:05] VITALS: BP 132/87
== END 2022-11-03 14:45 | disposition home or self-care (01) ==
LOC: ERS 14:36 → 2SW 19:54
PROVIDERS: ADMIT Surgery; ATTEND Surgery
DX: R52 Pain, unspecified (principal); I25.10 Atherosclerotic heart disease of native coronary artery without angina pectoris; J44.1 Chronic obstructive pulmonary disease with (acute) exacerbation; E11.9 Type 2 diabetes mellitus without complications; I10 Essential (primary) hypertension; M32.9 Systemic lupus erythematosus, unspecified; J85.3 Abscess of mediastinum; K21.9 Gastro-esophageal reflux disease without esophagitis; I25.2 Old myocardial infarction; Z88.2 Allergy status to sulfonamides; Z79.82 Long term (current) use of aspirin; Z79.4 Long term (current) use of insulin; Z79.899 Other long term (current) drug therapy; Z95.5 Presence of coronary angioplasty implant and graft; V89.2XXA Person injured in unspecified motor-vehicle accident, traffic, initial encounter
CPT/HCPCS: 71260; 72125; 73030; 73564 ×2; 74177; 80053 ×2; 82962; 83735; 84100; 84484; 85025 ×2; 90471; 90714; 93005; 96374; 96375; 99285; G0378 ×3; J3475; 36415; 36416; G0390; J1885; J3480; J7050; Q9967

== ENCOUNTER 2022-11-13 07:28 | Outpatient (CLI) | payer OTHER | END 2022-11-13 07:29 | disposition home or self-care (01) | LOC: SCSMRI 07:28 | PROVIDERS: ATTEND Internal Medicine Nephrology | DX: N28.89 Other specified disorders of kidney and ureter (principal); Q61.02 Congenital multiple renal cysts | CPT/HCPCS: 74183 ==